=== PATIENT | male | born 1955 | race African-American/Black ===

== ENCOUNTER 2016-10-28 23:21 | Emergency (ER) | payer SELFPAY ==
[~2016-10-28] VITALS: Ht 167.6 cm; Wt 63.5 kg
[~2016-10-28 23:21] MED LIST: GABA-586 PO; HYDR-971 PO; METF500T4 PO
[2016-10-28 23:48] VITALS: BP 153/87
[2016-10-29] MEDS ORDERED: GABA-586 PO (00:03)
[2016-10-29] MEDS ORDERED: METF500T4 PO (00:03)
[2016-10-29] MEDS ORDERED: HYDR-971 PO (00:03)
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
[2016-10-29] MEDS ORDERED: HYDROCODONE/APAP 5/325MG TABLET. PO ONE (00:15)
[2016-10-29] MEDS ORDERED: GABAPENTIN 300 MG CAPSULE. PO ONE (00:15)
[2016-10-29] MEDS ORDERED: METFORMIN 500 MG TABLET. PO ONE (00:15)
== END 2016-10-29 00:22 | disposition home or self-care (01) ==
LOC: ER 23:21
DX: E11.40 Type 2 diabetes mellitus with diabetic neuropathy, unspecified (principal)
CPT/HCPCS: 82947; 99284